=== PATIENT | male | born 1950 ===

== ENCOUNTER → 2019-03-28 00:47 | Outpatient (ROUT) | payer MEDICARE, MEDICAID, SELFPAY ==
[2019-03-28 03:31] LABS: Total Iron Binding Capacity 288 ug/dL (261-462)
[2019-03-30 14:54] LABS: Ceruloplasmin 40 mg/dL (18-36)
== END ==
PROVIDERS: Visit Provider Family Medicine
DX: D50.9 Iron deficiency anemia, unspecified (principal); D46.9 Myelodysplastic syndrome, unspecified; R78.79 Finding of abnormal level of heavy metals in blood
CPT/HCPCS: 36415; 82390; 82525; 82728; 83090; 83550; 83655; 83825